=== PATIENT | male | born 1975 | race Caucasian/White ===

== ENCOUNTER 2016-08-31 13:52 | Emergency (ER) | payer OTHER ==
[~2016-08-31] VITALS: Ht 182.9 cm; Wt 86.2 kg
[~2016-08-31 13:52] MED LIST: IBUPROFEN800 M1 PO; PREDNISONE20 M1 PO; VIBRAMYCIN100 MG PO
--- NOTE | 2016-08-31 14:49 | ED GI/GU/ABDOMINAL COMPLAINT ---
History of Present Illness General Chief Complaint: Abdominal Pain/Flank Pain Stated Complaint: LARGE BUMP IN LOWER ABD- FEVER Source: patient Exam Limitations: no limitations Vital Signs & Intake/Output Vital Signs & Intake/Output Vital Signs Date Time Temp Pulse Resp B/P Pulse O2 O2 Flow FiO2 Ox Delivery Rate 08/31 2050 97.8 97 18 128/80 95 Room Air 08/31 1914 97 08/31 1913 98.5 99 16 110/68 97 Room Air 08/31 1649 97.6 85 18 132/70 97 Room Air 08/31 1402 96.5 117 20 122/82 96 Room Air ED Intake and Output 09/01 0000 08/31 1200 Intake Total 250 Output Total Balance 250 Intake, IV 250 Patient 190 lb Weight Allergies Coded Allergies: No Known Allergies (08/31/16) Reconcile Medications Cephalexin (Keflex) 500 MG CAPSULE 1 CAP PO TID INFECTION Cephalexin (Keflex) 500 MG CAPSULE 1 CAP PO TID INFECTION Ibuprofen 800 MG TABLET 1 TAB PO TID PRN PAIN Sulfamethoxazole/Trimethoprim (Bactrim Ds Tablet) 800 MG-160 MG TABLET 1 TAB PO BID ABSCESS Tramadol HCl 50 MG TABLET 1 TAB PO BIDP PRN PAIN Triage Note: TRIAGE: PT TO ER C/C PAIN TO R GROIN INTO R ABD X 2 WKS, WAS INTERMITTENT BUT NOW CONSTANT X 1 WK. NOTICED LUMP 1 WK AGO. +N/-V/-D. LNBM TODAY. -URINARY S/S. Triage Nurses Notes Reviewed? yes Onset: Gradual Duration: day(s): (5) Timing: recent history Quality/Severity: severe, throbbing Severity Numbers: 10 Location: right groin Radiation: no radiation No Modifying Factors: none Associated Symptoms: diaphoresis, fever/chills HPI: 40 male presents with 1 week duration of sharp pain in right inguinal area. For the last 2 days associated nausea, vomiting chills and tmax 103 at home. He has been taking motrin for pain/fever. Symptoms worse at night. Today the symptoms got worse and his girlfriend convinced him to come to the hospital. No history of similar symptoms, no previous skin infections. He does not shave the groin area. He denies any previous injury at the site but states he has a small area of redness on his lower abdomen which resolved. Past History Travel History Traveled to [place] past 21 day No Medical History Any Pertinent Medical History? 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 No Review of Systems Review of Systems Constitutional: Reports: chills, diaphoresis, fever. EENTM: Reports: no symptoms. Respiratory: Denies: cough, orthopnea. Cardiovascular: Denies: chest pain, palpitations. GI: Denies: abdominal pain, diarrhea, nausea, vomiting. Genitourinary: Denies: discharge, dysuria, frequency. Musculoskeletal: Reports: no symptoms. Skin: Reports: erythema, lumps. Neurological/Psychological: Reports: no symptoms. Hematologic/Endocrine: Denies: bruising, bleeding. Immunologic/Allergic: Denies: splenectomy. All Other Systems: Reviewed and Negative Physical Exam Physical Exam General Appearance: well developed/nourished, alert, awake, anxious, moderate distress, obese Head: atraumatic, normal appearance Eyes: Bilateral: normal appearance, PERRL, EOMI. Ears, Nose, Throat, Mouth: hearing grossly normal, moist mucous membrane Neck: normal inspection, supple, full range of motion Respiratory: normal breath sounds, chest non-tender, no respiratory distress Cardiovascular: tachycardia Peripheral Pulses: 2+ radial (R), 2+ radial (L) Gastrointestinal: normal bowel sounds, soft, non-tender Male Genitals: normal genitalia Back: normal inspection, normal range of motion Extremities: normal range of motion Neurologic/Psych: no motor/sensory deficits, awake, alert, oriented x 3 Skin: intact, normal color, warm/dry, RIGHT GROIN FIRM INDURATED MASS/ERYTHEMA Diagram Body Front & Back 1) 10 X 5 CM FIRM/INDURATED/ERYTHEMATOUS MASS Core Measures ACS in differential dx? No Severe Sepsis Present: No Septic Shock Present: No Progress Differential Diagnosis: ABSCESS, MASS, LYMPH NODE, CELLULITIS Plan of Care: Orders Procedure Date/time Status TRUNK AREA CULTURE 08/31 1826 Active PARTIAL THROMBOPLASTIN TIME 08/31 1528 Complete PROTHROMBIN TIME 08/31 1528 Complete BLOOD CULTURE 08/31 1519 Active COMPREHENSIVE METABOLIC PANEL 08/31 1519 Complete CBC WITHOUT DIFFERENTIAL 08/31 1519 Complete Laboratory Tests 08/31/16 1556: Anion Gap 15, Estimated GFR > 60, BUN/Creatinine Ratio 11.1, Glucose 103 H, Calcium 9.7, Total Bilirubin 0.7, AST 18, ALT 27, Alkaline Phosphatase 97, Total Protein 8.3 H, Albumin 4.0, Globulin 4.3 H, Albumin/Globulin Ratio 0.9 L, PT 14.0 H, INR 1.34 H, APTT 30, CBC w Diff NO MAN DIFF REQ, RBC 4.54 L, MCV 93.8 , MCH 31.3 H, RDW 12.2, MPV 6.5 L, Gran % 82.2 H, Lymphocytes % 9.1 L, Monocytes % 8.3, Eosinophils % 0.2, Basophils % 0.2, Absolute Granulocytes 14.6 H, Absolute Lymphocytes 1.6, Absolute Monocytes 1.5 H, Absolute Eosinophils 0, Absolute Basophils 0, PUBS MCHC 33.4 08/31/16 1519: Urine Color Cancelled, Urine Clarity Cancelled, Urine pH Cancelled, Ur Specific [place] Cancelled, Urine Protein Cancelled, Urine Ketones Cancelled, Urine Nitrite Cancelled, Urine Bilirubin Cancelled, Urine Urobilinogen Cancelled, Ur Leukocyte Esterase Cancelled, Ur Microscopic Cancelled, Urine Hemoglobin Cancelled, Urine Glucose Cancelled Microbiology 08/31 1830 TRUNK: Culture & Sensitivity - RES BETA STREP GROUP A 08/31 1829 TRUNK: Gram Stain - RES 08/31 1610 BLOOD: Blood Culture - RES 08/31 1556 BLOOD: Blood Culture - RES LABS, BLOOD CULTURES, IV FLUDIS ORDERED. BEDSIDE U/S PERFORMED, ? ABSCESS VS MASS. CT PELVIS WITH IV CONTRAST ORDERED. CT CONSISTENT WITH LIKELY ABSCESS. BEDSIDE I+D PERFORMED IV UNASYN GIVEN. PATIENT REFUSING ADMISSION TO THE HOSPITAL, WILL RETURN ON Thursday FOR REEVALUATION. (ANDREW BLACK,JYOTHI) Diagnostic Imaging: Viewed by Me: CT Scan. Discussed w/RAD: CT Scan. Initial ED EKG: normal axis (V), none Comments: PATIENT: PATT WHITTEN PRESENT AGE: 40 PATIENT ACCOUNT NO: [id number] : 77 LOCATION: ER ORDERING PHYSICIAN: JYOTHI MORALES MD SERVICE DATE: 08/31/16 EXAM TYPE: CAT - CT PELVIS W IV CONTRAST EXAMINATION: CT PELVIS WITH IV CONTRAST CLINICAL INFORMATION: Right groin mass/erythema. COMPARISON: None. TECHNIQUE: Helical scanning was performed with submillimeter collimation through the pelvis with 94 mL of Optiray 320 intravenous contrast. Sagittal and coronal multiplanar 2-D reconstructions were obtained. DLP: 1100 mGy-cm. FINDINGS: Along the right inguinal region, there is a 4.2 x 4.2 x 5.7 cm collection with central low density measuring 31 Hounsfield units and an indistinct/irregular peripheral margin. There is adjacent inflammatory stranding within the subcutaneous tissues. Inflammatory stranding extends cephalad along the right lower abdominal/pelvic soft tissues superficial to the right external oblique muscle. Mildly asymmetrically prominent right inguinal/pelvic lymph nodes without bulky adenopathy. No other discrete fluid collection. No free fluid within the pelvis. The bladder, prostate gland, and seminal vesicles are unremarkable. Bowel gas pattern is nonobstructive. No acute osseous abnormality. Subcentimeter bilateral sclerotic foci within the proximal femurs statistically most likely represent bone islands. IMPRESSION: 1. Solitary collection in the right inguinal region as above. This is favored to represent abscess over other etiologies. This would be amenable to percutaneous fine-needle aspiration/drainage under ultrasound guidance. Surrounding subcutaneous soft tissue inflammation. 2. Mildly asymmetrically prominent right inguinal and pelvic lymph nodes without bulky adenopathy. These are favored to be reactive in nature. DICTATED BY: SERGEI TORRES MD DATE/TIME DICTATED:08/31/161720 FACE WORKER:TAM DATE/TIME TRANSCRIBED:08/31/161720 CONFIDENTIAL, DO NOT COPY WITHOUT APPROPRIATE AUTHORIZATION. <Electronically signed in Other Vendor System> SIGNED BY: SERGEI TORRES MD 08/31/161735 Departure Departure Time of Disposition: 1911 Disposition: HOME OR SELF CARE Condition: Stable Clinical Impression Primary Impression: Abscess Secondary Impressions: Fever Referrals: PATIENT HAS NO PRIMARY CARE DR (PCP/Family) Additional Instructions: RETURN ON THURSDAY FOR WOUND CHECK. TAKE THE BACTRIM AND KEFLEX, MOTRIN AND TRAMADOL DIRECTED. RETURN SOONER FOR ANY WORSENING SYMPTOMS. Departure Forms: Customer Survey General Discharge Information Prescriptions: Current Visit Scripts Sulfamethoxazole/Trimethoprim (Bactrim Ds Tablet) 1 TAB PO BID #20 TAB Cephalexin (Keflex) 1 CAP PO TID #30 CAP Cephalexin (Keflex) 1 CAP PO TID #30 CAP Ibuprofen 1 TAB PO TID PRN PAIN #30 TAB Tramadol HCl 1 TAB PO BIDP PRN PAIN #10 TAB Procedures Incision and Drainage Site: RIGHT GROIN Blade Size: 11 I & D Procedure: Yes: betadine prep, sterile drapes applied, sterile dressing applied, wick placed. Progress: LARGE AMOUNT OF PURULENT DRAINAGE. PATIENT REQUIRED IV MORPHINE AND VALIUM. IODOFORM GAUZE USED FOR PACKING 2 INCH.
[2016-08-31 16:10] LABS: ABSOLUTE BASOPHIL COUNT 0 /CUMM (0.0-0.2); ABSOLUTE EOSINOPHIL COUNT 0 /CUMM (0.0-0.7); ABSOLUTE GRANULOCYTE CT 14.6 /CUMM (1.4-6.5); ABSOLUTE LYMPH COUNT 1.6 /CUMM (1.2-3.4); ABSOLUTE MONOCYTE COUNT 1.5 /CUMM (0.10-0.60); BASOPHIL % 0.2 % (0.0-2.0); EOSINOPHIL % 0.2 % (0-5); GRANULOCYTE % 82.2 % (42.2-75.2); HEMATOCRIT 42.6 % (42-52); MEAN CORPUSCULAR HGB 31.3 PG (27.0-31.0); MEAN CORPUSCULAR HGB CONC 33.4 G/DL (33.0-37.0); MEAN CORPUSCULAR VOLUME 93.8 FL (80.0-94.0); MEAN PLATELET VOLUME 6.5 FL (7.4-10.4); PLATELET COUNT 373 /CUMM (130-400); RBC DISTRIBUTION WIDTH 12.2 % (11.5-14.5); RED BLOOD CELL CT 4.54 /CUMM (4.70-6.10); WHITE BLOOD CELL COUNT 17.7 /CUMM (4.8-10.8)
[2016-08-31 16:25] LABS: PTT 30 SEC (25-37)
--- NOTE | 2016-08-31 17:36 | CT SCAN REPORT ---
EXAMINATION: CT PELVIS WITH IV CONTRAST CLINICAL INFORMATION: Right groin mass/erythema. COMPARISON: None. TECHNIQUE: Helical scanning was performed with submillimeter collimation through the pelvis with 94 mL of Optiray 320 intravenous contrast. Sagittal and coronal multiplanar 2-D reconstructions were obtained. DLP: 1100 mGy-cm. FINDINGS: Along the right inguinal region, there is a 4.2 x 4.2 x 5.7 cm collection with central low density measuring 31 Hounsfield units and an indistinct/irregular peripheral margin. There is adjacent inflammatory stranding within the subcutaneous tissues. Inflammatory stranding extends cephalad along the right lower abdominal/pelvic soft tissues superficial to the right external oblique muscle. Mildly asymmetrically prominent right inguinal/pelvic lymph nodes without bulky adenopathy. No other discrete fluid collection. No free fluid within the pelvis. The bladder, prostate gland, and seminal vesicles are unremarkable. Bowel gas pattern is nonobstructive. No acute osseous abnormality. Subcentimeter bilateral sclerotic foci within the proximal femurs statistically most likely represent bone islands. IMPRESSION: 1. Solitary collection in the right inguinal region as above. This is favored to represent abscess over other etiologies. This would be amenable to percutaneous fine-needle aspiration/drainage under ultrasound guidance. Surrounding subcutaneous soft tissue inflammation. 2. Mildly asymmetrically prominent right inguinal and pelvic lymph nodes without bulky adenopathy. These are favored to be reactive in nature.
[2016-08-31] MEDS ORDERED: BACTRIM DS TAB1 EACH PO (19:13)
[2016-08-31] MEDS ORDERED: TRAMADOL HCL50 M1 PO (19:13)
[2016-08-31] MEDS ORDERED: IBUPROFEN800 M1 PO (19:13)
[2016-08-31] MEDS ORDERED: KEFLEX500 M1 PO (19:13)
[2016-08-31 20:51] VITALS: BP 128/80
== END 2016-08-31 20:52 ==
LOC: ERH 13:52
PROVIDERS: Emergency Medicine
DX: L02.214 Cutaneous abscess of groin (principal); R50.9 Fever, unspecified; R11.2 Nausea with vomiting, unspecified
CPT/HCPCS: 87040; 87070; 87147; 96374; 96375; J1885; J3360; J3370

== ENCOUNTER 2016-09-03 13:37 | Emergency (ER) | payer SELFPAY ==
[~2016-09-03 13:37] MED LIST changes: +BACTRIM DS TAB1 EACH PO; +KEFLEX500 M1 PO; +TRAMADOL HCL50 M1 PO
[2016-09-03 13:43] VITALS: BP 143/80
== END 2016-09-03 14:46 | disposition admitted as inpatient to this hospital (09) ==
LOC: ERH 13:37
DX: Z09 Encounter for follow-up examination after completed treatment for conditions other than malignant neoplasm (principal)

== ENCOUNTER 2016-09-04 13:19 | Emergency (ER) | payer OTHER ==
[~2016-09-04] VITALS: Ht 182.9 cm; Wt 86.2 kg
--- NOTE | 2016-09-04 16:27 | ED ANIMAL BITE/WOUND CHECK ---
History of Present Illness General Chief Complaint: General Adult Stated Complaint: PT IS HERE FOR FOLLOW UP Source: patient, old records Exam Limitations: no limitations Vital Signs & Intake/Output Vital Signs & Intake/Output Vital Signs Date Time Temp Pulse Resp B/P Pulse O2 O2 Flow FiO2 Ox Delivery Rate 09/04 1640 97.0 90 128/74 09/04 1342 97.3 100 18 119/73 98 Room Air Allergies Coded Allergies: No Known Allergies (08/31/16) Reconcile Medications Cephalexin (Keflex) 500 MG CAPSULE 1 CAP PO TID INFECTION Cephalexin (Keflex) 500 MG CAPSULE 1 CAP PO TID INFECTION Ibuprofen 800 MG TABLET 1 TAB PO TID PRN PAIN Sulfamethoxazole/Trimethoprim (Bactrim Ds Tablet) 800 MG-160 MG TABLET 1 TAB PO BID ABSCESS Tramadol HCl 50 MG TABLET 1 TAB PO BIDP PRN PAIN Triage Note: PT HERE TO HAVE PACKING REMOVED FROM R GROIN AREA. STATES THAT HE HAD ABCESS DRAINED AND COULDN'T COM IN THE DAY OF STORM AND LAST PM THERE WAS A 3 HOUR WAIT Triage Nurses Notes Reviewed? yes HPI: Patient is a 41-year-old male presents for abscess recheck. Patient had incision and drainage to a right inguinal abscess on August 31. Patient's been taking Keflex and Bactrim since the incision and drainage. Patient reports that pain is 0 out of 10, mild pain with palpation. Initially area was draining a large amount at home, over the past 1-2 days minimal drainage from the area. Patient denies fevers, chills, nausea, vomiting, redness spreading. Past History Travel History Traveled to [place] past 21 day No Medical History Any Pertinent Medical History? 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 No Review of Systems Review of Systems Constitutional: Denies: chills, fever. GI: Denies: abdominal pain, nausea, vomiting. Musculoskeletal: Reports: no symptoms. Skin: Reports: see HPI. Neurological/Psychological: Reports: no symptoms. Hematologic/Endocrine: Reports: no symptoms. Immunologic/Allergic: Reports: no symptoms. Physical Exam Physical Exam General Appearance: well developed/nourished, alert, awake Head: atraumatic, normal appearance Eyes: Bilateral: normal appearance, PERRL, EOMI. Ears, Nose, Throat: hearing grossly normal Neck: normal inspection, supple, full range of motion Respiratory: no respiratory distress Gastrointestinal: normal bowel sounds, soft, 3 cm incision right inguinal. No surrounding erythema. No surrounding induration or fluctuance. Back: normal range of motion Neurologic/Psych: no motor/sensory deficits, awake, alert, oriented x 3, normal gait, normal mood/affect Skin: see abdominal exams Progress Differential Diagnosis: abscess, cellulitis Plan of Care: Patient afebrile, nontoxic-appearing. No surrounding cellulitis or signs of further collection requiring further incision. Results of culture reviewed( strep). Patient appears stable for discharge. Departure Departure Time of Disposition: 1640 Disposition: HOME OR SELF CARE Condition: Stable Clinical Impression Primary Impression: Abscess re-check Referrals: PATIENT HAS NO PRIMARY CARE DR (PCP/Family) TI BLACK,ROMA N. Additional Instructions: Continue the Cephalexin(Keflex) as directed. May stop taking the Bactrim. Warm compresses to the area for 20 minutes 4-5 times a day. Follow up with Dr. Norris(surgeon) if not improving over the next 1 week. Return to the ER if fevers, redness spreading or worsening of symptoms. Departure Forms: Customer Survey General Discharge Information
[2016-09-04 16:40] VITALS: BP 128/74
== END 2016-09-04 16:56 ==
LOC: ERH 13:19
DX: L02.214 Cutaneous abscess of groin (principal)
CPT/HCPCS: 99281